=== PATIENT | male | born 1980 | race Caucasian/White ===

== ENCOUNTER 2016-10-24 19:42 | Emergency (ER) | payer SELFPAY ==
[~2016-10-24] VITALS: Ht 180.3 cm; Wt 106.6 kg
[2016-10-24] MEDS ORDERED: ALBU8.5H8 INH (20:02)
[2016-10-24] MEDS ORDERED: ACETAMINOPHEN ES 500 MG TABLET PO ONE (20:15)
[2016-10-24] MEDS ORDERED: DIAZEPAM 2 MG TABLET PO ONE (20:15)
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
[2016-10-24] MEDS ORDERED: DIAZEPAM 2 MG TABLET ONE (20:36)
[2016-10-24] MEDS ORDERED: ACETAMINOPHEN ES 500 MG TABLET ONE (20:36)
--- NOTE | 2016-10-24 21:04 | NUR ---
Pt stable for discharge per Dr. Fernández. Pt given ACI. Pt verbalized understanding of dc instructions. Pt ambulated out of ER with steady gait and ride home.
[2016-10-24 21:05] VITALS: BP 118/75
== END 2016-10-24 21:06 | disposition home or self-care (01) ==
LOC: ER 19:43
DX: G89.11 Acute pain due to trauma (principal); M54.5 Low back pain; J45.909 Unspecified asthma, uncomplicated; F17.200 Nicotine dependence, unspecified, uncomplicated; V43.52XA Car driver injured in collision with other type car in traffic accident, initial encounter; Y93.89 Activity, other specified; Y92.413 State road as the place of occurrence of the external cause; Y99.9 Unspecified external cause status
CPT/HCPCS: 72100; A4663